=== PATIENT | male | born 1950 | race Caucasian/White ===

== ENCOUNTER 2016-10-25 13:41 | Emergency (ER) | payer MEDICARE, OTHER ==
--- NOTE | 2016-10-25 15:31 | UC ---
Respiratory Complaint HPI - HPI Summary HPI Summary: 66 year old male with complaints of cough x 1 month. Feelings of post nasal mucus, clearing throat often, dry spastic cough infrequent most of time seems to get worse when first goes to bed but much improved upon waking. Denies stuffy nose or sinus pain or pressure. Denies fever, chills, chest pain or difficulty breathing. Mild sore throat or feeling of "fatigue" in throat when eating solid foods. Denies choking or difficulty swallowing. Denies any weakness or general fatigue. Denies heart burn He has been taking Enbrel for RA. It has been discontinued temporally as he was very fearful of being on them while he was ill. - History of Current Complaint Chief Complaint: UCGeneralIllness Stated Complaint: COUGH FOR 1 MONTH Time Seen by Provider: 10/25/16 14:57 Hx Obtained From: Patient Onset/Duration: Gradual Onset, Lasting Weeks - 4, Still Present Timing: Intermittent Episodes Severity Initially: Mild Severity Currently: Mild Character: Cough: Nonproductive Aggravating Factors: Recumbent Position Associated Signs And Symptoms: Positive: Nasal Congestion - mild, Hoarseness - when talking a lot. Negative: Dyspnea, Fever, Chills, Pleuritic Chest Pain, Wheezing, Dizziness, Calf Swelling, Edema, URI, Sinus Discomfort - Risk Factors Pulmonary Embolism Risk Factors: Negative Cardiac Risk Factors: Negative Pseudomonas Risk Factors: Negative Tuberculosis Risk Factors: Negative - Allergies/Home Medications Allergies/Adverse Reactions: Allergies Allergy/AdvReac Type Severity Reaction Status Date / Time No Known Allergies Allergy Verified 04/27/15 19:24 PMH/Surg Hx/FS Hx/Imm Hx Previously Healthy: Yes Endocrine History Of: Denies: Diabetes Cardiovascular History Of: Reports: Cardiac Disorders - heart murmur Denies: Hypertension Respiratory History Of: Denies: Asthma - Surgical History Surgical History: Yes Surgery Procedure, Year, and Place: knee surgery as a child - Family History Known Family History: Positive: Hypertension Negative: Diabetes - Social History Occupation: Retired Lives: With Family Alcohol Use: None Substance Use Type: None Smoking Status (MU): Former Smoker When Did the Patient Quit Smoking/Using Tobacco: 10 years Review of Systems Constitutional: Negative Skin: Negative Eyes: Negative ENT: Negative Respiratory: Cough Cardiovascular: Negative Gastrointestinal: Negative Genitourinary: Negative Motor: Negative Neurovascular: Negative Musculoskeletal: Negative Neurological: Negative Psychological: Negative All Other Systems Reviewed And Are Negative: Yes Physical Exam Triage Information Reviewed: Yes Appearance: No Pain Distress, Well-Nourished, Ill-Appearing - mildly Vital Signs: Initial Vital Signs Temp 97.5 F 10/25/16 14:59 Pulse 89 10/25/16 14:59 Resp 18 10/25/16 14:59 BP 134/76 10/25/16 14:59 Pulse Ox 100 10/25/16 14:59 Vital Signs Reviewed: Yes Eyes: Positive: Conjunctiva Clear. Negative: Discharge ENT: Positive: Pharynx normal, Nasal congestion - mild, Nasal drainage - clear post nasal mucus, TMs normal. Negative: Pharyngeal erythema, Tonsillar swelling , Tonsillar exudate Neck: Positive: Supple, Nontender Respiratory: Positive: Lungs clear, Normal breath sounds, Other: - no cough noted. Negative: Crackles, Wheezing Cardiovascular: Positive: RRR, No Murmur Abdomen Description: Positive: Nontender, No Organomegaly, Soft. Negative: CVA Tenderness (R), CVA Tenderness (L), Distended, Guarding Musculoskeletal: Positive: Strength Intact, ROM Intact Neurological: Positive: Alert, Muscle Tone Normal Psychological: Positive: Age Appropriate Behavior - pleasant and cooperative Skin: Negative: rashes, breakdown UC Diagnostic Evaluation - Laboratory O2 Sat by Pulse Oximetry: 100 Respiratory Course/Dx - Course Course Of Treatment: Chest Xray - COPD - Differential Dx/Diagnosis Differential Diagnosis/HQI/PQRI: Bronchitis, Lower Resp Infection, Other - Acid Reflux Provider Diagnoses: Acute Bronchitis. COPD Discharge - Discharge Plan Condition: Stable Disposition: HOME Prescriptions: Azithromycin TAB* [Zithromax TAB (Z-ROBER) 250 mg #6 tabs] 250 mg PO DAILY #6 tab predniSONE TAB* [Deltasone TAB*] 40 mg PO DAILY #10 tab Patient Education Materials: Acute Bronchitis (ED), COPD (Chronic Obstructive Pulmonary Disease) (ED) Referrals: Brayan Broderick MD [Primary Care Provider] - Brayan Barriga MD [Medical Doctor] - 1 Week (If your "fatigued" feeling in your throat and the vocal horesness does not improve within 1 week of treatment)
--- NOTE | 2016-10-25 15:40 | RAD ---
HISTORY: Cough COMPARISONS: None VIEWS: 2: Frontal dual-energy and lateral views of the chest. FINDINGS: CARDIOMEDIASTINAL SILHOUETTE: The cardiomediastinal silhouette is normal. JADEN: The jaden are normal. PLEURA: The costophrenic angles are sharp. No pleural abnormalities are noted. LUNG PARENCHYMA: There is hyperinflation with flattening of the diaphragm and expansion of the AP diameter of the chest. ABDOMEN: The upper abdomen is clear. There is no subphrenic gas. BONES AND SOFT TISSUES: No bone or soft tissue abnormalities are noted. OTHER: None. IMPRESSION: HYPERINFLATION, CONSISTENT WITH COPD. NO ACTIVE CARDIOPULMONARY DISEASE.
[2016-10-25 15:58] VITALS: BP 134/76
== END 2016-10-25 16:13 | disposition home or self-care (01) ==
LOC: UCCORT 13:41
DX: J20.9 Acute bronchitis, unspecified (principal); R09.81 Nasal congestion; J44.9 Chronic obstructive pulmonary disease, unspecified; M06.9 Rheumatoid arthritis, unspecified; R01.1 Cardiac murmur, unspecified; Z87.891 Personal history of nicotine dependence
CPT/HCPCS: 71020; 99212; G0463